=== PATIENT | female | born 2000 | race Caucasian/White ===

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

== ENCOUNTER 2022-09-24 12:58 | Emergency (ER) | payer BC ==
[~2022-09-24] VITALS: Ht 165.1 cm; Wt 57.6 kg
[2022-09-24 13:09] VITALS: BP_SYST 127
[2022-09-24] MEDS ORDERED: PRED20TA PO (13:28)
[2022-09-24] MEDS ORDERED: IBUP-1969 PO (13:28)
[2022-09-24] MEDS ORDERED: PENICILLIN G BENZATHINE 1.2 MMU/2 ML SYR IM ONE (13:30)
[2022-09-24] MEDS ORDERED: KETOROLAC TROMETHAMINE 60 MG/2 ML VIAL IM ONE (13:30)
[2022-09-24 16:23] VITALS: BP_SYST 119
== END 2022-09-24 14:46 | disposition home or self-care (01) ==
LOC: SED 12:58
DX: A49.1 Streptococcal infection, unspecified site (principal); Z79.899 Other long term (current) drug therapy
CPT/HCPCS: 99284; 96372; J0561; J1885